=== PATIENT | female | born 1975 | race Caucasian/White ===

== ENCOUNTER → 2018-07-09 | Outpatient (REF) | payer BC ==
[~2018-07-09] MED LIST: ACE3 PO; IBU800 PO; LOR5/325 PO; PREN-67 PO
== END ==
LOC: ZZSENDIN 16:38
PROVIDERS: ATTEND Family Medicine
DX: R10.13 Epigastric pain (principal)
CPT/HCPCS: 83690

== ENCOUNTER → 2018-07-11 | Outpatient (CLI) | payer BC ==
--- NOTE | 2018-07-11 08:40 | RADIOLOGY IMAGING REPORT ---
FACILITY: [facility] PATIENT NAME: Jill Irene : 1975 MR: [id number] V: [id number] EXAM DATE: ORDERING PHYSICIAN: OSVALDO PORTILLO TECHNOLOGIST: Location: [facility] Patient: Jill Irene : 1975 Visit/Account:[id number] Date of Sevice: 07/11/2018 GALLBLADDER HISTORY: Epigastric pain COMPARISON: October 18, 2010 FINDINGS: Gallbladder: Unremarkable; no stones or sludge. Liver: Liver parenchyma appears homogeneous. Liver length 14.2 cm Common duct: Normal, 2.1 mm diameter. Pancreas: Partially obscured by bowel, visualized aspects unremarkable. Right kidney: The kidney appears unremarkable measuring 9.9 cm in length Upper abdominal aorta and IVC: Patent. Ascites: None visualized. IMPRESSION: Unremarkable right upper quadrant ultrasound Report Dictated By: Lita Lynne MD at 07/11/2018 8:33 AM Report E-Signed By: Lita Lynne MD at 07/11/2018 8:35 AM WSN:ANT
== END ==
LOC: US 07-10 14:19
PROVIDERS: ATTEND Family Medicine
DX: R10.13 Epigastric pain (principal)
CPT/HCPCS: 76705